=== PATIENT | female | born 1990 | race Two or more races ===

== ENCOUNTER 2018-02-15 20:17 | Emergency (ER) | payer MEDICAID ==
[~2018-02-15] VITALS: Ht 160 cm; Wt 63.5 kg
[~2018-02-15 20:17] MED LIST: NITROFURANTOIN100 M2 ORAL; PROAIR HFA8.5 GM INH; ZOFRAN ODT4 MG ORAL
[2018-02-15] MEDS ORDERED: Albuterol ud Inhalation HHN ONE (20:45)
[2018-02-15] MEDS ORDERED: Ipratropium 0.02% Inh Soln 2.5ml UD HHN ONE (20:45)
[2018-02-15 20:49] VITALS: BP 112/84
[2018-02-15] MEDS ORDERED: ALBUTEROL SULF8.5 GM INH (21:10)
[2018-02-15] MEDS ORDERED: PREDNISONE20 MG ORAL (21:10)
[2018-02-15 21:22] VITALS: BP 112/84
--- NOTE | 2018-02-16 13:52 | Emergency Room Report ---
History of Present Illness General Chief Complaint: Asthma Source: Patient Present Illness HPI 27-year-old female presents ED complaining of cough and shortness of breath 2 days. History of asthma. Cough is dry. Denies fevers or chills. Denies sick contacts or recent travel. Denies smoking. No other aggravating relieving factors. Denies any other associated symptoms Allergies: Coded Allergies: NO KNOWN DRUG ALLERGIES (Unverified Allergy, Unknown, 04/23/14) Patient History Past Medical History: none Past Surgical History: none Pertinent Family History: none Social History: Denies: smoking, alcohol use, drug use Last Menstrual Period: 02/09/2018 Now: No : 3 Para: 3 Immunizations: UTD Reviewed Nursing Documentation: PMH: Agreed; PSxH: Agreed Nursing Documentation-PMH Hx Asthma: Yes Review of Systems All Other Systems: negative except mentioned in HPI Physical Exam Vital Signs Date Time Temp Pulse Resp B/P (MAP) Pulse Ox O2 Delivery O2 Flow Rate FiO2 02/15/18 20:28 98.4 71 18 112/84 96 Room Air 98.4 02/15/18 20:44 21 Sp02 EP Interpretation: reviewed, normal General Appearance: no apparent distress, alert, GCS 15, non-toxic Head: normocephalic Eyes: bilateral eye normal inspection, bilateral eye PERRL ENT: normal ENT inspection Neck: full range of motion Respiratory: wheezing Cardiovascular #1: regular rate, rhythm, no edema Gastrointestinal: normal inspection Rectal: deferred Genitourinary: no CVA tenderness Musculoskeletal: normal inspection Neurologic: alert, oriented x3, responsive, motor strength/tone normal, sensory intact, speech normal Psychiatric: normal inspection Skin: normal inspection Lymphatic: normal inspection Medical Decision Making Diagnostic Impression: Primary Impression: Bronchitis ER Course Hospital Course 27-year-old female presents to ED complaining of cough, wheezing Differential diagnoses include: URI, bronchitis, asthma/COPD, pneumonia Clinical course Patient placed on stretcher. After initial history and physical I ordered prednisone and nebulizer treatment. Upon reassessment patient states cough and symptoms have improved. Findings consistent with bronchitis. Patient safe for discharge. States she has a PMD. We'll prescribe albuterol and prednisone. Diagnosis - bronchitis Stable and discharged home with prescriptions for Rx prednisone, albuterol. Instructed to followup with PMD. Return to ED if symptoms recur or worsen Last Vital Signs Date Time Temp Pulse Resp B/P (MAP) Pulse Ox O2 Delivery O2 Flow Rate FiO2 02/15/18 21:22 98.4 63 20 112/84 100 Room Air 21 98.4 Status: improved Disposition: HOME, SELF-CARE Condition: Stable Scripts Prednisone* (PREDNISONE*) 20 Mg Tablet 40 MG ORAL DAILY, #10 TAB Prov: Jagdish John MD 02/15/18 Albuterol Sulfate* (ALBUTEROL SULFATE MDI*) 8.5 Gm Hfa.aer.ad 2 PUFF INH Q6H, #1 EA 0 Refills Prov: Jagdish John MD 02/15/18 Patient Instructions: Acute Bronchitis, [id number] Jagdish John MD Feb 16, 2018 13:52
== END 2018-02-15 21:20 | disposition home or self-care (01) ==
LOC: EMR 21:00
DX: J40 Bronchitis, not specified as acute or chronic (principal); R06.2 Wheezing
CPT/HCPCS: 94640; 94664; 99283; J7512

== ENCOUNTER 2018-05-10 18:29 | Emergency (ER) | payer MEDICAID, OTHER ==
[~2018-05-10] VITALS: Ht 160 cm; Wt 63.5 kg
[~2018-05-10 18:29] MED LIST changes: +ALBUTEROL SULF8.5 GM INH; +PREDNISONE20 MG ORAL
[2018-05-10] MEDS ORDERED: Sodium Chloride 500ML 500 ML IV ONE (19:20)
--- NOTE | 2018-05-10 19:40 | NUR ---
ED Nurse Note: RECIEVED PT ON GURNEY FROM HOME AWAKE, ALERT AND ORIENTED X 4, PT HERE WITH C/O GASTRIC DISCOMFORTS WITH VAGINAL ITCHING AND INTERMITTENT CRAMPING X 2 DAYS, PT DENIES FEVERS, DIARRHEA OR VOMITING BUT DOES HAVE NAUSEA, PT DENIES CP, SOB, OR ANY OTHER COMPLAITNS OR DISCOMFORTS.
[2018-05-10 19:43] LABS: APPEARANCE,URINE CLEAR; BILIRUBIN, URINE 1+ (NEGATIVE); GLUCOSE, URINE (UA) NEGATIVE (NEGATIVE); KETONES,URINE 4+ (NEGATIVE); LEUKOCYTE ESTERASE ,URINE 2+ (NEGATIVE); NITRITE,URINE NEGATIVE (NEGATIVE); PH,URINE 6 (4.5-8.0); PROTEIN,URINE 3+ (NEGATIVE); UROBILINOGEN,URINE 1 MG/DL (0.0-1.0)
[2018-05-10 19:45] VITALS: BP 100/61
[2018-05-10 19:52] LABS: COLOR,URINE YELLOW
[2018-05-10 19:59] LABS: HEMATOCRIT 45.6 % (37.0-47.0); HEMOGLOBIN 15.1 G/DL (12.0-16.0); MEAN CORPUSCULAR VOLUME 91 FL (80-99); PLATELET COUNT 203 K/UL (150-450); RED CELL DISTRIBUTION WIDTH 11.9 % (11.6-14.8); WHITE BLOOD COUNT 18.7 K/UL (4.8-10.8)
[2018-05-10 20:11] LABS: ANION GAP 11 mmol/L (5-15); BLOOD UREA NITROGEN 13 mg/dL (7-18); CARBON DIOXIDE 25 MMOL/L (21-32); CHLORIDE 105 MMOL/L (98-107); CREATININE 0.8 MG/DL (0.55-1.30); POTASSIUM 3.5 MMOL/L (3.5-5.1); SODIUM 141 MMOL/L (136-145)
[2018-05-10 20:15] LABS: ALANINE AMINOTRANSFERASE 18 U/L (12-78); ALBUMIN 4.4 G/DL (3.4-5.0); ALBUMIN/GLOBULIN RATIO 1.3 (1.0-2.7); ALKALINE PHOSPHATASE 62 U/L (46-116); ASPARTATE AMINO TRANSFERASE 13 U/L (15-37); BILIRUBIN,TOTAL 0.4 MG/DL (0.2-1.0)
[2018-05-10] MEDS ORDERED: RANITIDINE HCL150 MG ORAL (20:26)
[2018-05-10] MEDS ORDERED: NITROFURANTOIN100 M2 ORAL (20:26)
[2018-05-10] MEDS ORDERED: DICYCLOMINE HCL10 MG PO (20:26)
[2018-05-10] MEDS ORDERED: FLUCONAZOLE100 MG ORAL (20:26)
[2018-05-10] MEDS ORDERED: ONDANSETRON ODT4 MG BC (20:26)
[2018-05-10 20:30] VITALS: BP 101/56
--- NOTE | 2018-05-10 20:35 | NUR ---
ED Nurse Note: PT MEDICATED ORDERED, MEDS EFFECTIVE, PAIN AND ANUSEA RESOLVED, PT BEING D/C TO HOME, PT IS AWAKE, ALERT AND ORIENTED X 4, AMBULATORY WITH STEADY GAIT, NO PAIN, NO SOB, PT GIVEN F/U INFO, AFTER CAREINSTRUCTIONS AND RE-VERBALIZES PROPERE MEDICATION ADMINISTRATION, PT IV LINE AND ARM BAND REMOVED WITHOUT COMPLICATIONS, NAD NOTED DURING D/C TO HOME.
[2018-05-10 20:51] VITALS: BP 101/56
--- NOTE | 2018-05-10 22:00 | Emergency Room Report ---
History of Present Illness General Chief Complaint: Abdominal Pain Source: Patient, Medical Record Present Illness HPI 27-year-old female presents ED for evaluation. Patient complaining of nausea vomiting diarrhea 1 day. Pain is cramping, 5 out of 10, nonradiating. Also noting dysuria. Denies recent travel. Denies flank pain. Denies fevers or chills. Denies recent antibiotic use. No other aggravating relieving factors. Denies any other associated symptoms Allergies: Coded Allergies: NO KNOWN DRUG ALLERGIES (Unverified Allergy, Unknown, 04/23/14) Patient History Past Medical History: asthma Past Surgical History: none Pertinent Family History: none Social History: Denies: smoking, alcohol use, drug use Last Menstrual Period: 03/2018 Now: No - Unknown : 3 Para: 3 Immunizations: UTD Reviewed Nursing Documentation: PMH: Agreed; PSxH: Agreed Nursing Documentation-PMH Hx Asthma: Yes Review of Systems All Other Systems: negative except mentioned in HPI Physical Exam Vital Signs Date Time Temp Pulse Resp B/P (MAP) Pulse Ox O2 Delivery O2 Flow Rate FiO2 05/10/18 18:58 98.1 106 18 99/70 97 Room Air Sp02 EP Interpretation: reviewed, normal General Appearance: no apparent distress, alert, GCS 15, non-toxic Head: normocephalic, atraumatic Eyes: bilateral eye normal inspection, bilateral eye PERRL ENT: hearing grossly normal, normal pharynx, no angioedema, normal voice Neck: full range of motion, supple/symm/no masses Respiratory: chest non-tender, lungs clear, normal breath sounds, speaking full sentences Cardiovascular #1: regular rate, rhythm, no edema Cardiovascular #2: 2+ carotid (R), 2+ carotid (L), 2+ radial (R), 2+ radial (L) , 2+ dorsalis pedis (R), 2+ dorsalis pedis (L) Gastrointestinal: normal bowel sounds, soft, non-distended, no guarding, no rebound, tenderness Rectal: deferred Genitourinary: normal inspection, no CVA tenderness Musculoskeletal: back normal, gait/station normal, normal range of motion, non- tender Neurologic: alert, oriented x3, responsive, motor strength/tone normal, sensory intact, speech normal Psychiatric: judgement/insight normal, memory normal, mood/affect normal, no suicidal/homicidal ideation Reflexes: 3+ bicep (R), 3+ bicep (L), 3+ tricep (R), 3+ tricep (L), 3+ knee (R) , 3+ knee (L) Skin: normal color, no rash, warm/dry, well hydrated Lymphatic: no adenopathy Medical Decision Making Diagnostic Impression: Primary Impression: Gastroenteritis Additional Impression: UTI (urinary tract infection) Qualified Codes: N39.0 - Urinary tract infection, site not specified ER Course Hospital Course 27-year-old F presents to ED with cramping abdominal pain with vomiting, diarrhea differential diagnosis: gastritis, SBO, cholecystits, gastroenteritis Clinical course Patient placed on stretcher. On cardiac cath tech. After initial history and physical I ordered labs, IV fluids, GI cocktail, Zofran and pepcid Labs - noted leukocytosis, electrolytes ok, LFTs normal, UA + bacteria Upon reassessment, patient states she feels better. findings consistent with gastroenteritis Abdomen soft. Can be safely discharged to home. We'll provide prescriptions. Patient states she has a PMD I feel this is a highly complex case requiring extensive working including EKG/ Rhythm strip, Xray/CT/US, Blood/urine lab work, repeat exams while in ED, and administration of strong opiates/narcotics for pain control, admission to hospital or close patient follow up. Diagnosis - gastroenteritis, UTI Stable and discharged to home with prescriptions for Zantac, zofran, bentyl, keflex, diflucan. Followup with PMD. Return to ED if symptoms recur or worsen Labs Test 05/10/18 19:20 05/10/18 19:40 Urine Color Yellow Urine Appearance Clear Urine pH 6 (4.5-8.0) Urine Specific [place] 1.020 (1.005-1.035) Urine Protein 3+ (NEGATIVE) Urine Glucose (UA) Negative (NEGATIVE) Urine Ketones 4+ (NEGATIVE) Urine Blood 3+ (NEGATIVE) Urine Nitrite Negative (NEGATIVE) Urine Bilirubin 1+ (NEGATIVE) Urine Ictotest Negative (NEGATIVE) Urine Urobilinogen 1 MG/DL (0.0-1.0) Urine Leukocyte Esterase 2+ (NEGATIVE) Urine RBC 2-4 /HPF (0 - 2) Urine WBC 5-10 /HPF (0 - 2) Urine Squamous Epithelial Cells Few /LPF (NONE/OCC) Urine Bacteria Few /HPF (NONE) Urine Mucus Moderate /LPF (NONE/OCC) Urine HCG, Qualitative Negative (NEGATIVE) White Blood Count 18.7 K/UL (4.8-10.8) Red Blood Count 5.00 M/UL (4.20-5.40) Hemoglobin 15.1 G/DL (12.0-16.0) Hematocrit 45.6 % (37.0-47.0) Mean Corpuscular Volume 91 FL (80-99) Mean Corpuscular Hemoglobin 30.2 PG (27.0-31.0) Mean Corpuscular Hemoglobin Concent 33.1 G/DL (32.0-36.0) Red Cell Distribution Width 11.9 % (11.6-14.8) Platelet Count 203 K/UL (150-450) Mean Platelet Volume 11.4 FL (6.5-10.1) Neutrophils (%) (Auto) % (45.0-75.0) Lymphocytes (%) (Auto) % (20.0-45.0) Monocytes (%) (Auto) % (1.0-10.0) Eosinophils (%) (Auto) % (0.0-3.0) Basophils (%) (Auto) % (0.0-2.0) Differential Total Cells Counted 100 Neutrophils % (Manual) 86 % (45-75) Lymphocytes % (Manual) 9 % (20-45) Monocytes % (Manual) 3 % (1-10) Eosinophils % (Manual) 0 % (0-3) Basophils % (Manual) 0 % (0-2) Band Neutrophils 2 % (0-8) Platelet Estimate Adequate Platelet Morphology Normal Red Blood Cell Morphology Normal Sodium Level 141 MMOL/L (136-145) Potassium Level 3.5 MMOL/L (3.5-5.1) Chloride Level 105 MMOL/L (98-107) Carbon Dioxide Level 25 MMOL/L (21-32) Anion Gap 11 mmol/L (5-15) Blood Urea Nitrogen 13 mg/dL (7-18) Creatinine 0.8 MG/DL (0.55-1.30) Estimat Glomerular Filtration Rate > 60 mL/min (>60) Glucose Level 110 MG/DL (74-106) Calcium Level 9.0 MG/DL (8.5-10.1) Total Bilirubin 0.4 MG/DL (0.2-1.0) Aspartate Amino Transf (AST/SGOT) 13 U/L (15-37) Alanine Aminotransferase (ALT/SGPT) 18 U/L (12-78) Alkaline Phosphatase 62 U/L (46-116) Total Protein 7.7 G/DL (6.4-8.2) Albumin 4.4 G/DL (3.4-5.0) Globulin 3.3 g/dL Albumin/Globulin Ratio 1.3 (1.0-2.7) Lipase 118 U/L (73-393) Last Vital Signs Date Time Temp Pulse Resp B/P (MAP) Pulse Ox O2 Delivery O2 Flow Rate FiO2 05/10/18 20:51 98.4 88 16 101/56 100 Room Air Status: improved Disposition: HOME, SELF-CARE Condition: Stable Scripts Fluconazole (FLUCONAZOLE) 100 Mg Tablet 100 MG ORAL DAILY for 2 Days, TAB 0 Refills Prov: Jagdish John MD 05/10/18 Nitrofurantoin Monohyd/M-Cryst* (MACROBID 100 MG*) 100 Mg Capsule 100 MG ORAL EVERY 12 HOURS for 7 Days, CAP Prov: Jagdish John MD 05/10/18 Ondansetron Odt* (ZOFRAN ODT*) 4 Mg Tab.rapdis 4 MG BC EVERY 6 HOURS PRN for Nausea & Vomiting, #20 TAB 0 Refills Prov: Jagdish John MD 05/10/18 Dicyclomine Hcl* (DICYCLOMINE HCL*) 10 Mg Capsule 10 MG PO QID for 5 Days, CAP Prov: Jagdish John MD 05/10/18 Ranitidine Hcl* (ZANTAC*) 150 Mg Tablet 150 MG ORAL TWICE A DAY, #30 TAB Prov: Jagdish John MD 05/10/18 Patient Instructions: Viral Gastroenteritis, Adult, [id number] Jagdish John MD May 10, 2018 22:00
== END 2018-05-10 20:51 | disposition home or self-care (01) ==
LOC: EMR 20:45
DX: K52.9 Noninfective gastroenteritis and colitis, unspecified (principal); N39.0 Urinary tract infection, site not specified; J45.909 Unspecified asthma, uncomplicated
CPT/HCPCS: 36415; 80053; 81003; 81025; 83690; 85007; 85025; 96374; 96375; 99284; J2405; S0028

== ENCOUNTER 2019-04-24 20:25 | Emergency (ER) | payer SELFPAY ==
[~2019-04-24] VITALS: Ht 160 cm; Wt 70.3 kg
[~2019-04-24 20:25] MED LIST changes: +DICYCLOMINE HCL10 MG PO; +FLUCONAZOLE100 MG ORAL; +ONDANSETRON ODT4 MG BC; +RANITIDINE HCL150 MG ORAL
[2019-04-24 20:45] VITALS: BP 96/53
--- NOTE | 2019-04-24 21:09 | Emergency Room Report ---
History of Present Illness General Chief Complaint: Upper Respiratory Illness Source: Patient Present Illness [facility] This is a 28-year-old female who is 20 weeks . She is also has a history of asthma. She presents with cough and congestion. Onset for last 2 days. No fever chills. Short of breath. Out of her inhaler. Saw her primary care doctor today who prescribed antibiotics but did not refill her prescription. Last oral use was a year ago. Cough is nonproductive nature. Worse with inspiration. Better with rest. No fever or chills. No nausea or vomiting. No vaginal bleeding or abdominal pain. Allergies: Coded Allergies: NO KNOWN DRUG ALLERGIES (Unverified Allergy, Unknown, 04/23/14) Patient History Past Medical History: see triage record, old chart reviewed, asthma Past Surgical History: other Pertinent Family History: none Social History: Denies: smoking Last Menstrual Period: unk Now: Yes : 5 Para: 4 Immunizations: other Reviewed Nursing Documentation: PMH: Agreed; PSxH: Agreed Nursing Documentation-PMH Hx Asthma: Yes Review of Systems Eye: Denies: eye pain, blurred vision ENT: Denies: ear pain, nose congestion, throat swelling Respiratory: Reports: cough, shortness of breath, wheezing Cardiovascular: Denies: chest pain, palpitations Gastrointestinal: Denies: abdominal pain, diarrhea, nausea, vomiting Musculoskeletal: Denies: back pain, joint pain Skin: Denies: rash Neurological: Denies: headache, numbness Endocrine: Denies: increased thirst, increased urine Hematologic/Lymphatic: Denies: easy bruising All Other Systems: negative except mentioned in HPI Physical Exam Vital Signs Date Time Temp Pulse Resp B/P (MAP) Pulse Ox O2 Delivery O2 Flow Rate FiO2 04/24/19 20:31 98.2 121 18 96/53 (67) 95 Room Air Vitals unremarkable except for tachycardia. Repeat heart rate 100 Sp02 EP Interpretation: reviewed, normal General Appearance: well appearing, no apparent distress, alert Head: normocephalic, atraumatic Eyes: bilateral eye PERRL, bilateral eye EOMI ENT: hearing grossly normal, normal pharynx Neck: full range of motion, supple, no meningismus Respiratory: chest non-tender, normal breath sounds, other - Coughing fits with inspiration Cardiovascular #1: regular rate, rhythm, no murmur Gastrointestinal: normal bowel sounds, non tender, no mass, no organomegaly, no bruit, non-distended Musculoskeletal: back normal, normal range of motion, gait/station normal Psychiatric: mood/affect normal Medical Decision Making Diagnostic Impression: Primary Impression: Upper respiratory infection Qualified Codes: J06.9 - Acute upper respiratory infection, unspecified Additional Impression: Asthma exacerbation Qualified Codes: J45.21 - Mild intermittent asthma with (acute) exacerbation ER Course Patient presents with upper respiratory infection with asthma exacerbation. Better after breathing treatment. No evidence of ACS, PE, dissection to name a few. Will discharge home. Steroid given here. Last Vital Signs Date Time Temp Pulse Resp B/P (MAP) Pulse Ox O2 Delivery O2 Flow Rate FiO2 04/24/19 20:31 98.2 121 18 96/53 (67) 95 Room Air Status: improved Disposition: HOME, SELF-CARE Condition: Stable Scripts Prednisone* (PREDNISONE*) 20 Mg Tablet 40 MG ORAL DAILY, #8 TAB Prov: Blair Coreas MD 04/24/19 Albuterol Sulfate* (ALBUTEROL SULFATE MDI*) 8.5 Gm Hfa.aer.ad 2 PUFF INH Q4H PRN for cough/wheezing, #1 EA 0 Refills Prov: Blair Coreas MD 04/24/19 Patient Instructions: Upper Respiratory Infection, Adult Additional Instructions: Follow-up with your doctor in 7 days. Return if symptoms worsen. Blair Coreas MD Apr 24, 2019 21:09
[2019-04-24] MEDS ORDERED: Albuterol ud Inhalation HHN ONE ×2 (21:15→22:30)
[2019-04-24] MEDS ORDERED: Ipratropium 0.02% Inh Soln 2.5ml UD HHN ONE (21:15)
[2019-04-24] MEDS ORDERED: ALBUTEROL SULF8.5 GM INH (22:35)
[2019-04-24] MEDS ORDERED: PREDNISONE20 MG ORAL (22:35)
[2019-04-24 22:55] VITALS: BP 96/53
== END 2019-04-24 22:55 | disposition home or self-care (01) ==
LOC: EMR 21:10
DX: O99.512 Diseases of the respiratory system complicating pregnancy, second trimester (principal); J45.21 Mild intermittent asthma with (acute) exacerbation; Z3A.20 20 weeks gestation of pregnancy
CPT/HCPCS: 86710; 99283; J7512

== ENCOUNTER 2019-06-07 17:11 | Emergency (ER) | payer MEDICAID ==
[~2019-06-07] VITALS: Ht 160 cm; Wt 68.9 kg
--- NOTE | 2019-06-07 17:34 | Emergency Room Report ---
History of Present Illness General Chief Complaint: Complications Source: Patient Present Illness HPI Disclaimer: Please note that this report is being documented using [employer] technology. This can lead to erroneous entry secondary to incorrect interpretation by the dictating instrument. HPI: 28-year-old G4, P3 female at 34 weeks gestation presents for evaluation of abdominal pain and vomiting. Symptoms began several hours ago. She reports bilateral lower pelvic cramping but denies contractions. Denies vaginal bleeding or leakage of fluid. She wrote ports lower pelvic pressure and pain intermittently. She started vomiting several hours ago. Denies diarrhea but states her stools have been loose. Denies fever or chills. Denies URI symptoms , chest pain or shortness of breath. No prior complications with her previous pregnancies. Followed up with NEIGHBORHOOD COORDINATOR regularly at clinic. Has been taking prenatals. No other medications, denies alcohol or drug use PMH: Asthma PSH: Denies Allergies: Denies Social Hx: Denies Allergies: Coded Allergies: NO KNOWN DRUG ALLERGIES (Unverified Allergy, Unknown, 04/23/14) Patient History Now: Yes - 34 WEEKS Nursing Documentation-PMH Hx Asthma: Yes Review of Systems All Other Systems: negative except mentioned in HPI Physical Exam Vital Signs Date Time Temp Pulse Resp B/P (MAP) Pulse Ox O2 Delivery O2 Flow Rate FiO2 06/07/19 17:23 98.1 107 16 106/60 (75) 99 Room Air General: Awake and alert, no acute distress HEENT: NC/AT. EOMI. Cardiovascular: Tachycardic. S1 and S2 normal. No murmur appreciated Resp: Normal work of breathing. No cough, wheezing or crackles appreciated Abdomen: Gravid abdomen. Fundus above the umbilicus. Mild tenderness in the suprapubic region and lower quadrants bilaterally. No peritoneal signs Skin: Intact. No abrasions, laceration or rash over the exposed skin MSK: Normal tone and bulk. Moving all extremities. No obvious deformity. Neuro: Awake and alert. Mentating appropriately. Medical Decision Making Diagnostic Impression: Primary Impression: Abdominal pain during Additional Impression: Left against medical advice ER Course 28-year-old G4, P3 female 34 weeks gestation presents for evaluation of lower pelvic cramping, vomiting and soft stools beginning earlier today. Differential includes was not limited to gastritis, gastroenteritis, pancreatitis, cholecystitis, appendicitis, uterine rupture, viral syndrome, placenta previa to name a few. Patient denies bleeding. Vital signs are stable. Will start IV fluids, check broad labs, send for an ultrasound of the abdomen. She may require long-term monitoring. Laboratory Tests Test 06/07/19 17:21 06/07/19 17:35 Urine Color Pale yellow Urine Appearance Clear Urine pH 7 (4.5-8.0) Urine Specific [place] 1.005 (1.005-1.035) Urine Protein Negative (NEGATIVE) Urine Glucose (UA) Negative (NEGATIVE) Urine Ketones Negative (NEGATIVE) Urine Blood Negative (NEGATIVE) Urine Nitrite Negative (NEGATIVE) Urine Bilirubin Negative (NEGATIVE) Urine Urobilinogen Normal MG/DL (0.0-1.0) Urine Leukocyte Esterase Negative (NEGATIVE) White Blood Count 13.1 K/UL (4.8-10.8) H Red Blood Count 3.80 M/UL (4.20-5.40) L Hemoglobin 11.1 G/DL (12.0-16.0) L Hematocrit 35.2 % (37.0-47.0) L Mean Corpuscular Volume 93 FL (80-99) Mean Corpuscular Hemoglobin 29.1 PG (27.0-31.0) Mean Corpuscular Hemoglobin Concent 31.4 G/DL (32.0-36.0) L Red Cell Distribution Width 13.1 % (11.6-14.8) Platelet Count 145 K/UL (150-450) L Mean Platelet Volume 16.2 FL (6.5-10.1) H Neutrophils (%) (Auto) 63.4 % (45.0-75.0) Lymphocytes (%) (Auto) 25.3 % (20.0-45.0) Monocytes (%) (Auto) 5.1 % (1.0-10.0) Eosinophils (%) (Auto) 5.3 % (0.0-3.0) H Basophils (%) (Auto) 0.9 % (0.0-2.0) Prothrombin Time 9.5 SEC (9.30-11.50) Prothrombin Time INR 0.9 (0.9-1.1) Activated Partial Thromboplast Time 27 SEC (23-33) Sodium Level 138 MMOL/L (136-145) Potassium Level 3.7 MMOL/L (3.5-5.1) Chloride Level 108 MMOL/L (98-107) H Carbon Dioxide Level 22 MMOL/L (21-32) Anion Gap 8 mmol/L (5-15) Blood Urea Nitrogen 6 mg/dL (7-18) L Creatinine 0.5 MG/DL (0.55-1.30) L Estimate Glomerular Filtration Rate > 60 mL/min (>60) Glucose Level 75 MG/DL (74-106) Calcium Level 8.7 MG/DL (8.5-10.1) Total Bilirubin 0.3 MG/DL (0.2-1.0) Aspartate Amino Transferase (AST) 15 U/L (15-37) Alanine Aminotransferase (ALT) 19 U/L (12-78) Alkaline Phosphatase 116 U/L (46-116) Total Protein 6.6 G/DL (6.4-8.2) Albumin 2.8 G/DL (3.4-5.0) L Globulin 3.8 g/dL Albumin/Globulin Ratio 0.7 (1.0-2.7) L Lipase 117 U/L (73-393) CT/MRI/US Diagnostic Results CT/MRI/US Diagnostic Results : Impression Preliminary Findings Only See Final Report For Complete Findings US PELVIS: Findings single intrauterine gestation, 34 weeks. Cephalic presentation. Estimated weight 2255 g Positive heart tones 131 bpm. Cervix is 4.9 cm and closed. DEBBIE 14.9 cm Radiologist: Roscoe Varghese MD Study ready at 19:17 and initial results transmitted at 19:40 Reevaluation Time: 20:30 Last Vital Signs Date Time Temp Pulse Resp B/P (MAP) Pulse Ox O2 Delivery O2 Flow Rate FiO2 06/07/19 17:23 98.1 107 16 106/60 (75) 99 Room Air Reevaluation Impression Labs are returned within normal limits. No evidence of urinary tract infection. Ultrasound shows a single intrauterine approximately 34 weeks with a cephalic presentation. Heart rate within normal limits, cervix closed and thick. DEBBIE nearly 15. The patient is having intermittent pressure in the lower pelvis but denies pain currently. I was arranging for transfer to OB facility for long-term monitoring however I was alerted by nursing staff that the patient wishes to leave. Initially she was agreeable to transfer however now she states she has to return home. She states her symptoms are improving and that she can follow-up with her NEIGHBORHOOD COORDINATOR tomorrow. I explained that without long-term heart rate monitoring we cannot determine whether or not there is a risk to the or to the mother. Stated she understood and that she would return if her symptoms progress or fail to improve. She also states she had close follow-up with her NEIGHBORHOOD COORDINATOR and could be seen tomorrow. I strongly encouraged the patient to remain in our emergency department and await transfer for long-term monitoring however she again declined and left the emergency department AGAINST MEDICAL ADVICE. Disposition: AGAINST MEDICAL ADVICE Condition: Stable Kike Mcconnell MD Jun 07, 2019 17:34
--- NOTE | 2019-06-07 17:40 | NUR ---
ED Nurse Note: pt ambulated to ED from home d/t lower abdominal pain with N/V started 1 hour ago. Pt denies positive signs/active contractions; denied vaginal bleeding nor rapture of any amniotic fluid. Pt is AOx4, VSS, on RA. Pt is 34 weeks ; 4, 0 miscarriages. Placed on bed and gown; hooked to batch roller operator.
[2019-06-07 17:54] LABS: BASOPHILS % (AUTO) 0.9 % (0.0-2.0); EOSINOPHILS % (AUTO) 5.3 % (0.0-3.0); HEMATOCRIT 35.2 % (37.0-47.0); HEMOGLOBIN 11.1 G/DL (12.0-16.0); LYMPHOCYTES % (AUTO) 25.3 % (20.0-45.0); MEAN CORPUSCULAR VOLUME 93 FL (80-99); MONOCYTES % (AUTO) 5.1 % (1.0-10.0); NEUTROPHILS % (AUTO) 63.4 % (45.0-75.0); PLATELET COUNT 145 K/UL (150-450); RED CELL DISTRIBUTION WIDTH 13.1 % (11.6-14.8); WHITE BLOOD COUNT 13.1 K/UL (4.8-10.8)
--- NOTE | 2019-06-07 17:56 | NUR ---
ED Nurse Note: Pt went to US via wheelchair accompanied by tech.
[2019-06-07 17:58] LABS: APPEARANCE,URINE CLEAR; BILIRUBIN, URINE NEGATIVE (NEGATIVE); COLOR,URINE PALE YELLOW; GLUCOSE, URINE (UA) NEGATIVE (NEGATIVE); KETONES,URINE NEGATIVE (NEGATIVE); LEUKOCYTE ESTERASE ,URINE NEGATIVE (NEGATIVE); NITRITE,URINE NEGATIVE (NEGATIVE); PH,URINE 7 (4.5-8.0); PROTEIN,URINE NEGATIVE (NEGATIVE); UROBILINOGEN,URINE NORMAL MG/DL (0.0-1.0)
[2019-06-07 17:59] LABS: ANION GAP 8 mmol/L (5-15); BLOOD UREA NITROGEN 6 mg/dL (7-18); CALCIUM 8.7 MG/DL (8.5-10.1); CARBON DIOXIDE 22 MMOL/L (21-32); CHLORIDE 108 MMOL/L (98-107); CREATININE 0.5 MG/DL (0.55-1.30); POTASSIUM 3.7 MMOL/L (3.5-5.1); SODIUM 138 MMOL/L (136-145)
[2019-06-07 18:04] LABS: ALANINE AMINOTRANSFERASE 19 U/L (12-78); ALBUMIN 2.8 G/DL (3.4-5.0); ALBUMIN/GLOBULIN RATIO 0.7 (1.0-2.7); ALKALINE PHOSPHATASE 116 U/L (46-116); ASPARTATE AMINO TRANSFERASE 15 U/L (15-37); BILIRUBIN,TOTAL 0.3 MG/DL (0.2-1.0); INR 0.9 (0.9-1.1)
--- NOTE | 2019-06-07 18:40 | NUR ---
ED Nurse Note: Pt returned from CT, on stable condition.
--- NOTE | 2019-06-07 18:44 | NUR ---
ED Nurse Note: Dr. Mcconnell at bedside.
--- NOTE | 2019-06-07 19:04 | NUR ---
ED Nurse Note: Hand-off given to TIMUR Sears.
[2019-06-07 19:05] VITALS: BP 110/66
--- NOTE | 2019-06-07 19:05 | NUR ---
ED Nurse Note: Received report from Neisha DING. Pt alert and oriented, not in any distress.
--- NOTE | 2019-06-07 19:41 | Diagnostic Imaging Report ---
Indication: Positive . Pelvic pain Technique: Grayscale and duplex Doppler imaging of the pelvis performed utilizing a transabdominal scan and endovaginal scan. Comparison: None Findings: Limited OB ultrasound demonstrating 34 week 2 day intrauterine . Viability demonstrated with heart tones. heart rate 131 bpm. Cervix is 5 cm in length and best demonstrated on endovaginal scan. The cervix is closed. DEBBIE is 14.9 cm. Placenta is anterior. Presentation is cephalic. IMPRESSION: Limited OB ultrasound demonstrating a viable third trimester fetus, 34 weeks 2 days gestational age. No acute findings are appreciated on this study. Note: A negative ultrasound evaluation does not insure well-being or positive outcome for the . monitoring including a nonstress test may be needed and clinical evaluation by [employer] [employer]ER is highly recommended.
--- NOTE | 2019-06-07 20:25 | NUR ---
ED Nurse Note: Pt wants to MD ANUP notified. ERMD at bedside.
[2019-06-07 20:30] VITALS: BP 110/66
--- NOTE | 2019-06-07 20:30 | NUR ---
ED Nurse Note: Pt decided to leave againts medical advice instead of being admitted or transferred out to a different hospital. As per pt, she feel better now than before. She doesnt have any pain anymore. And she is going to see her PCP tomorrow morning. Explained risk and benefits, verbally understood. AMA form signed. IV line and ID band removed. Pt alert and oriented, ambulatory. Left with all her belongings. Accomopanied by her .
== END 2019-06-07 20:30 | disposition home or self-care (01) ==
LOC: EMR 17:30
DX: O21.2 Late vomiting of pregnancy (principal); Z3A.34 34 weeks gestation of pregnancy; R10.9 Unspecified abdominal pain
CPT/HCPCS: 36415; 76805; 80053; 81003; 83690; 85025; 85610; 85730; 86850; 86900; 86901; 96374; J2405; J7040; Z7502; 99284